=== PATIENT | female | born 1975 | race Caucasian/White ===

== ENCOUNTER 2016-11-20 08:44 | Inpatient (IN) | payer OTHER ==
[2016-11-09 13:00] VITALS: BMI 40.0
--- NOTE | 2016-11-09 13:30 | PAT Medication Instructions ---
Service Date Nov 09, 2016. Current Home Medication List Albuterol (Proair Hfa), 2 PUFFS INH Q4H PRN for SOB/Wheezing Albuterol Soln (Proventil 0.083% 2.5MG/3ML), 2.5 MG INH QID Bupropion Hcl (Wellbutrin), 150 MG PO QAM Diazepam (Diazepam), 5 MG PO DIRECTED Diclofenac Sodium (Topical) (Voltaren 1% Top Gel), 1 DOSE TOP Q6 PRN for Pain Gabapentin (Neurontin), 300 MG PO TID Hydrochlorothiazide (Hctz), 25 MG PO QAM Linaclotide (Linzess), 290 MCG PO QAM Lisinopril (Prinivil), 20 MG PO QAM Methylphenidate (Ritalin), 20 MG PO TID Morphine Sulfate (Ms Contin), 60 MG PO Q12 Multivitamin (Multivitamin), 1 TAB PO QAM Oxycodone Hcl (Oxycontin), 20 MG PO Q6 PRN for Pain Prazosin Hcl (Prazosin), 1 MG PO BID Prazosin Hcl (Prazosin), 2 MG PO HS Propranolol (Inderal), 60 MG PO HS Ranitidine (Zantac), 150 MG PO BID Sucralfate (Sucralfate), 1 GM PO QID Medication Instructions For Your Scheduled Surgery - Hold the following medications 24 hours prior to surgery: Diclofenac Sodium (Topical) (Voltaren 1% Top Gel), 1 DOSE TOP Q6 PRN for Pain - Hold the following medications the morning of surgery: Sucralfate (Sucralfate), 1 GM PO QID Multivitamin (Multivitamin), 1 TAB PO QAM Linaclotide (Linzess), 290 MCG PO QAM Methylphenidate (Ritalin), 20 MG PO TID - Take the following medications the morning of surgery with a sip of water OTHERWISE NOTHING TO EAT OR DRINK AFTER MIDNIGHT: Bupropion Hcl (Wellbutrin), 150 MG PO QAM Prazosin Hcl (Prazosin), 1 MG PO BID Ranitidine (Zantac), 150 MG PO BID Gabapentin (Neurontin), 300 MG PO TID Oxycodone Hcl (Oxycontin), 20 MG PO Q6 PRN for Pain (okay to take if needed up to 4 hours prior to surgery) Morphine Sulfate (Ms Contin), 60 MG PO Q12 (okay to take if needed up to 4 hours prior to surgery) Diazepam (Diazepam), 5 MG PO DIRECTED Lisinopril (Prinivil), 20 MG PO QAM Hydrochlorothiazide (Hctz), 25 MG PO QAM Albuterol (Proair Hfa), 2 PUFFS INH Q4H PRN for SOB/Wheezing (use if needed; BRING TO HOSPITAL) Albuterol Soln (Proventil 0.083% 2.5MG/3ML), 2.5 MG INH QID - Take the following medications as scheduled the night before surgery: Sucralfate (Sucralfate), 1 GM PO QID Prazosin Hcl (Prazosin), 1 MG PO BID Ranitidine (Zantac), 150 MG PO BID Gabapentin (Neurontin), 300 MG PO TID Prazosin Hcl (Prazosin), 2 MG PO HS Propranolol (Inderal), 60 MG PO HS Oxycodone Hcl (Oxycontin), 20 MG PO Q6 PRN for Pain Morphine Sulfate (Ms Contin), 60 MG PO Q12 Methylphenidate (Ritalin), 20 MG PO TID Albuterol (Proair Hfa), 2 PUFFS INH Q4H PRN for SOB/Wheezing Albuterol Soln (Proventil 0.083% 2.5MG/3ML), 2.5 MG INH QID If you have any questions please call us at [phone] or [phone] or [phone]
--- NOTE | 2016-11-09 14:03 | DIAGNOSTIC IMAGING REPORT ---
CHEST 2 VIEWS ROUTINE HISTORY: Pre-op. PAT COMPARISON: Chest 09/17/2014. FINDINGS: The lungs are clear. Cardiac silhouette is normal in size. No pleural effusions. No pneumothorax. Cervical spinal fusion hardware is again noted. IMPRESSION: No acute process. Electronically signed by: Alen Valentino M.D. 11/09/2016 2:02 PM
[2016-11-09 15:02] LABS: BASO % 0.2 %; BASO ABS # 0.02 K/uL (0-0.2); COMPLETE YES; EOS % 2.3 %; HEMATOCRIT 38.4 % (37-47); IG% 0.3 %; LYMPH % 28.3 %; LYMPH ABS # 3.27 K/uL (1.2-3.4); MEAN CELL VOLUME 93.2 fL (80-100); MEAN CORPUSCULAR HEMOGLOBIN 32.5 pg (25-34); MEAN CORPUSCULAR HGB CONC 34.9 g/dl (32-36); MEAN PLATELET VOLUME 10.1 fL (7.4-10.4); NEUT % 61.9 %; PLATELET COUNT 389 K/uL (130-400); RED BLOOD COUNT 4.12 M/uL (4.2-5.4); WHITE BLOOD COUNT 11.55 K/uL (4.8-10.8)
[2016-11-09 15:07] LABS: URINE APPEARANCE CLEAR (CLEAR); URINE BILIRUBIN NEG (NEG); URINE COLOR YELLOW; URINE EPITHELIAL CELL AUTO 20-30 /lpf (0-5); URINE NITRITE NEG (NEG); UROBILINOGEN NEG (NEG)
[2016-11-09 15:09] LABS: MANUAL MICROSCOPIC REQUIRED? NO; REVIEW REQ? NO
[2016-11-09 15:32] LABS: BUN/CREATININE RATIO 13.6 (10-20); CALCIUM 9.2 mg/dl (8.5-10.1); CREATININE 0.75 mg/dl (0.60-1.20); POTASSIUM 3.6 mmol/L (3.5-5.1)
[2016-11-20] VITALS (11 sets, daily range): BP systolic 85–131; BP diastolic 48–88; PULSE 48–85; TEMP 36.4–36.8; O2SAT 92–98; Ht 180.3 cm; Wt 131.6 kg
[~2016-11-20] VITALS: Ht 180.3 cm; Wt 131.6 kg
[~2016-11-20 08:44] MED LIST: ALBU0.08 INH; ALBU1AER9 INH; BUPR100T4 PO; CEFAZOLIN 3000 MG/65 ML D5W IV SCH; DICL1GEL12 TOP; GABA-113 PO; HYDR25TA4 PO; LACTATED RINGER'S 1000ML 1,000 ML IV SCH; LINA1CAP2 PO; LISI20TA3 PO; MORP60TA6 PO; MULT-506 PO; OXYC20TA50 PO; PRAZ1CAP10 PO; PRAZ2CAP3 PO; PROP1TAB PO; RTL20 PO; SUCR1TAB PO; VLM5CL PO; ZNTT/150 PO
[2016-11-20] MEDS ORDERED: FENTANYL CITRATE INJ 50 MCG/1 ML 2 ML VIAL ONE ×5 (09:12→12:40)
[2016-11-20] MEDS ORDERED: MIDAZOLAM HCL 1 MG/ML 2ML VIAL ONE (09:12)
--- NOTE | 2016-11-20 09:33 | History & Physical Bridge Note ---
H&P Re-Evaluation Bridge Note: I have examined the patient, reviewed the History & Physical and in the interval since the performance of the History & Physical I have noted the following changes of clinical significance: No changes noted
--- NOTE | 2016-11-20 09:34 | History and Physical: Surg Cnt ---
History & Physical Date Nov 20, 2016. Chief Complaint back and leg pain History of Present Illness The patient is a 41 year old female with complaints of Additional History Hepatic Disease: No Endocrine Disorder: No Kidney Disease: No Hypertension: No Heart Disease: No Bleeding Tendencies: No Infectious Diseases: No Allergies Coded Allergies: NO KNOWN DRUG ALLERGIES (Verified Allergy, Unknown, , 11/20/16) Milk (Verified Adverse Reaction, Unknown, SINUS CONGESTION, 11/20/16) PATIENT TOLERATES SKIM MILK, Home Medications Scheduled Albuterol Soln (Proventil 0.083% 2.5MG/3ML), 2.5 MG INH QID Diazepam (Diazepam), 5 MG PO DIRECTED Gabapentin (Neurontin), 300 MG PO TID Hydrochlorothiazide (Hctz), 25 MG PO QAM Linaclotide (Linzess), 290 MCG PO QAM Lisinopril (Prinivil), 20 MG PO QAM Methylphenidate (Ritalin), 20 MG PO TID Morphine Sulfate (Ms Contin), 60 MG PO Q12 Multivitamin (Multivitamin), 1 TAB PO QAM Prazosin Hcl (Prazosin), 1 MG PO BID Prazosin Hcl (Prazosin), 2 MG PO HS Propranolol (Inderal), 60 MG PO HS Ranitidine (Zantac), 150 MG PO BID Sucralfate (Sucralfate), 1 GM PO QID Scheduled PRN Albuterol (Proair Hfa), 2 PUFFS INH Q4H PRN for SOB/Wheezing Diclofenac Sodium (Topical) (Voltaren 1% Top Gel), 1 DOSE TOP Q6 PRN for Pain Oxycodone Hcl (Oxycontin), 20 MG PO Q6 PRN for Pain Physical Examination Skin: warm/dry, no rash Eyes: normal inspection, EOMI, sclerae normal ENT: normal ENT inspection, pharynx normal Head: normocephalic, atraumatic Neck: supple, no adenopathy, trachea midline Respiratory/Chest: lungs clear, normal breath sounds, no respiratory distress Cardiovascular: regular rate, rhythm, no edema, no murmur Abdomen / GI: normal bowel sounds, non tender Back: normal inspection Extremities: normal inspection, normal range of motion Neurologic/Psych: no motor/sensory deficits, alert, normal reflexes, oriented x 3 Diagnosis stenosis l4-5 Plan of Treatment removal inst L5-S1 fusion L4-5
[2016-11-20] MEDS ORDERED: LACTATED RINGER'S 1000ML 1,000 ML IV PRN (09:56)
[2016-11-20] MEDS ORDERED: HYDROmorphone INJ 1 MG/ML SYR IV PRN (10:00)
[2016-11-20] MEDS ORDERED: ONDANSETRON INJ 2 MG/ML 2 ML VIAL IV PRN (10:00)
[2016-11-20] MEDS ORDERED: HYDROmorphone INJ 2 MG/ML SYR/VIAL ONE ×3 (10:36→15:56)
[2016-11-20] MEDS ORDERED: BUPIVACAINE/EPINEPHRINE 0.5% MPF 1:200,000 30 ML VIAL INJ ONE (10:45)
[2016-11-20] MEDS ORDERED: LIDOCAINE HCL 2% 2 ML VIAL (20MG/ML) ONE (11:13)
[2016-11-20] MEDS ORDERED: ROCURONIUM BROMIDE 10 MG/ML 5 ML VIAL ONE (11:13)
[2016-11-20] MEDS ORDERED: DEXAMETHASONE SOD INJ 4 MG/ML VIAL ONE (11:13)
[2016-11-20] MEDS ORDERED: PROPOFOL IV EMULSION 10 MG/ML 20 ML VIAL IV ONE (11:13)
[2016-11-20] MEDS ORDERED: BACITRACIN 50000 UNIT VIAL IR ONE (12:20)
[2016-11-20] MEDS ORDERED: FLOSEAL HEMOSTATIC MATRIX 10ML TOP ONE (12:20)
[2016-11-20] MEDS ORDERED: NEOSTIGMINE METHYLSULFATE 1 MG/ML 10ML VIAL ONE (12:27)
[2016-11-20] MEDS ORDERED: ONDANSETRON INJ 2 MG/ML 2 ML VIAL ONE ×2 (12:27→12:57)
[2016-11-20] MEDS ORDERED: KETOROLAC TROMETHAMINE 30 MG/ML VIAL ONE (12:27)
[2016-11-20] MEDS ORDERED: GLYCOPYRROLATE INJ 0.2 MG/ML VIAL ONE (12:27)
[2016-11-20] MEDS ORDERED: SODIUM CHLORIDE 0.9% 1000ML 1,000 ML IV SCH (12:28)
--- NOTE | 2016-11-20 12:28 | [facility] Post Operative Brief Note ---
Immediate Operative Summary Operative Date Nov 20, 2016. Pre-Operative Diagnosis Spinal Stenosis L4-L5 Post-Operative Diagnosis Spinal Stenosis L4-L5 Procedure(s) Performed tlif Surgeon Dr. Jnog Boucher D.O. Loss Prevention And Safety Manager Surgeon(s) Jeff Crespo PA-C Estimated Blood Loss 100 Findings stenosis/facet cyst Specimens A) Explanted Spinal Hardware B) L4-L5, Possible facet cyst
[2016-11-20] MEDS ORDERED: hydrOXYzine HCL 25 MG TAB PO PRN (12:30)
[2016-11-20] MEDS ORDERED: SOD PHOSPHATE/SOD BIPHOSPHATE ENEMA 132 ML BTL PR PRN (12:30)
[2016-11-20] MEDS ORDERED: ALBUTEROL HFA 8 GM INHALER INH PRN (12:30)
[2016-11-20] MEDS ORDERED: MAGNESIUM HYDROXIDE SUSP 30 ML UDC PO PRN (12:30)
[2016-11-20] MEDS ORDERED: DO NOT ADMINISTER PNEUMOCOCCAL VACCINE PRN ×2 (12:30)
[2016-11-20] MEDS ORDERED: DO NOT ADMINISTER FLU VACCINE PRN ×3 (12:30)
[2016-11-20] MEDS ORDERED: PROMETHAZINE HCL INJ 12.5 MG in SODIUM CHLORIDE 0.9% 50ML 50 ML IV PRN (12:30)
[2016-11-20] MEDS ORDERED: BISACODYL 10 MG SUPP PR PRN (12:30)
[2016-11-20] MEDS ORDERED: ALUMINUM/MAGNESIUM SUSP 30 ML UDC PO PRN (12:30)
[2016-11-20] MEDS ORDERED: FAMOTIDINE 20 MG TAB PO PRN (12:30)
[2016-11-20] MEDS ORDERED: NALOXONE HCL 0.4 MG/1 ML VIAL/CARP IV PRN ×2 (12:30)
[2016-11-20] MEDS ORDERED: METOCLOPRAMIDE HCL INJ 5 MG/ML 2 ML VIAL IV PRN (12:30)
[2016-11-20] MEDS ORDERED: LORAZEPAM INJ 0.5 MG in SYRINGE 0.75 ML IV PRN (12:30)
[2016-11-20] MEDS ORDERED: ACETAMINOPHEN 500 MG TAB PO PRN (12:30)
[2016-11-20] MEDS ORDERED: OXYCODONE HCL IR 5 MG TAB (IMMEDIATE RELEASE) PO PRN (12:30)
--- NOTE | 2016-11-20 12:35 | DIAGNOSTIC IMAGING REPORT ---
INTRAOPERATIVE LUMBAR SPINE 2 VIEWS CLINICAL HISTORY: L4-S1 DECOMPRESSION/FUSION/INTERBODY COMPARISON STUDY: September 2014 FINDINGS: There are postsurgical changes of discectomies and interbody fusions at the L4-5 and L5-S1 levels. There is a grade 1 spondylolisthesis of L5 and S1. There are L4 and L5 pedicle screws with adjoining spinal rods. 8 seconds of fluoroscopic time was utilized. 2 fluoroscopic spot images were acquired IMPRESSION: Intraoperative findings as described above. Electronically signed by: Ghulam Mandel M.D. 11/20/2016 12:33 PM
[2016-11-20] MEDS ORDERED: HYDROmorphone HCL 0.5MG/ML 50 ML CASSETTE ONE (12:53)
[2016-11-20] MEDS: FENTANYL CITRATE INJ 50 MCG/1 ML 2 ML VIAL IV PRN ×2 (13:09→13:14)
[2016-11-20] MEDS: MoRPHine SULFATE 10 MG/ML CARP/VIAL IV PRN ×2 (13:20→13:25)
--- NOTE | 2016-11-20 13:31 | OPERATIVE REPORT ---
DATE OF OPERATION: 11/20/2016 PREOPERATIVE DIAGNOSIS: Spinal stenosis L4-L5. POSTOPERATIVE DIAGNOSES: Same with evidence of facet cyst on the right. PROCEDURES PERFORMED: 1. Removal of instrumentation L5-S1. 2. Exploration of fusion L5-S1. 3. Lumbar decompression, bilateral medial facetectomy, foraminotomy L4-L5. 4. Posterior spinal fusion L4-L5. 5. Placement posterior instrumentation using Orthros rods and screws L4-L5. 6. Interbody fusion L4-L5. 7. Placement of PEEK cage 14 x 26 mm at L4-L5. 8. Placement of locally harvested morcellized autograft in posterior gutters. 9. Placement of FiberNet and OsteoStrux in the interbody space and posterior gutters. SURGEON: Dr. Jong Boucher. INSURANCE SOLICITOR: Jeff Crespo PA-C. Due to the complex nature of the procedure, the entire surgery was performed with the acquisitions assistant of DESTINI Polo.? The procurement assistant, under direct supervision, was involved in the actual performance of all aspects of the surgical procedure including hemostasis, tissue retraction and incision, instrument management, patient positioning, and wound closure. ANESTHESIA: General. DISPOSITION: The patient awakened and taken to PACU in stable condition. HISTORY OF PATIENT'S PROBLEMS: This is a 41-year-old female well known to me that presents with the above-mentioned diagnosis. After failing an extensive course of nonoperative care, elected to undergo the above-mentioned procedure. Risks, benefits, pros, cons, and alternatives were outlined in detail preoperatively. DESCRIPTION OF PROCEDURE: The patient was met preoperatively and the case discussed and all questions were addressed. At that point the patient was taken back to operative suite and after undergoing successful general intubation by the department of by department of anesthesia, was placed in prone position on Kaushal table atop Mason frame. All bony prominences were well padded and the eyes were inspected to ensure there was no external pressure placed upon them. At this point, lumbar spine was prepped and draped in normal sterile fashion. Sharp dissection with the assistance of Bovie cautery was performed down to and exposing the lamina and transverse processes of L4, L5 and instrumentation at L5-S1 level. I then proceeded to remove the hardware bilaterally exploring the fusion mass noting it to be intact. I then performed a complete laminectomy of L4 including bilateral medial facetectomies and foraminotomies addressing severe lateral recess foraminal stenosis. On the right we identified a mass of facet cyst. This was sent to pathology. After decompression, pedicle screws were placed in L4-L5 bilaterally with assistance of fluoroscopy and appropriate size phoenix provisionally placed. Through a transforaminal approach on the right, a discectomy of L4-L5 was performed, endplates curetted to subcortical bleeding bone and a 14 x 26 mm PEEK cage filled with FiberNet and OsteoStrux tapped into position. The rods were then compressed, locked into final position bilaterally and transverse processes of L4-L5 burred to subcortical bone. The OsteoStrux locally harvested morcellized autograft and FiberNet placed in the posterior gutters. A 7 flat SHIVA drain inserted. Incision was closed with 1-0 Vicryl in the fascia, 2-0 Vicryl subcutaneously, 4-0 Monocryl for final skin closure. Steri-Strips and sterile dressing were placed. The patient was awakened and taken to PACU in stable condition. I attest to the content of the Intraoperative Record and any orders documented therein. Any exceptio ns are noted below.
--- NOTE | 2016-11-20 13:59 | Anesthesiology Progress Note ---
Anesthesia Post Op Note Date & Time Nov 20, 2016 at 13:58 Vital Signs Pain Intensity: 8 Vital Signs Past 12 Hours Date Time Temp Pulse Resp B/P Pulse Ox O2 Delivery O2 Flow Rate FiO2 11/20/16 13:50 65 16 91/50 99 Nasal Cannula 2 11/20/16 13:40 66 16 90/47 99 Nasal Cannula 2 11/20/16 13:30 71 16 87/50 99 Mask 10 11/20/16 13:20 70 16 109/54 98 Mask 10 11/20/16 13:10 72 16 137/60 97 Mask 10 11/20/16 13:00 68 16 131/77 97 Mask 10 11/20/16 12:56 36.4 77 14 145/78 96 Mask 10 11/20/16 08:59 36.8 68 20 116/57 98 Room Air Notes Mental Status: alert / awake / arousable, participated in evaluation Pt Amnestic to Procedure: Yes Nausea / Vomiting: adequately controlled Pain: adequately controlled Airway Patency, RR, SpO2: stable & adequate BP & HR: stable & adequate Hydration State: stable & adequate Anesthetic Complications: no major complications apparent
[2016-11-20] MEDS: HYDROmorphone HCL 0.5MG/ML 50 ML CASSETTE IV PRN ×3 (14:41→23:04)
[2016-11-20] MEDS ORDERED: OXYC1TAB3 PO (15:12)
[2016-11-20] MEDS: LACTATED RINGER'S 1000ML 1,000 ML IV SCH ×2 (15:30→21:46)
[2016-11-20] MEDS ORDERED: DIAZEPAM 5MG TAB ONE (15:55)
[2016-11-20] MEDS ORDERED: OXYCODONE HCL IR 5 MG TAB (IMMEDIATE RELEASE) ONE (15:58)
[2016-11-20] MEDS: ALBUTEROL 0.083% NEBU SOLN 3 ML VIAL INH SCH ×2 (16:00→19:59)
[2016-11-20] MEDS ORDERED: NURSING VERBAL MED ORDER ONE ×2 (16:00→18:15)
[2016-11-20] MEDS: ACETAMINOPHEN IV 100 ML IV PRN (16:15)
[2016-11-20] MEDS: SUCRALFATE 1 GM TAB PO SCH ×2 (17:09→21:45)
[2016-11-20] MEDS: CEFAZOLIN IV 2,000 MG in DEXTROSE 5% 50ML 50 ML IV SCH (17:38)
[2016-11-20] MEDS: PAROXETINE 20 MG TAB PO SCH (18:39)
[2016-11-20] MEDS: DEXAMETHASONE INJ 6 MG in SYRINGE 0 ML IV SCH (19:24)
[2016-11-20] MEDS: OXYCODONE HCL IR 5 MG TAB (IMMEDIATE RELEASE) PO PRN (19:26)
[2016-11-20] MEDS: DOCUSATE SODIUM/SENNA 50/8.6MG TAB PO SCH (21:41)
[2016-11-20] MEDS: DIAZEPAM 5MG TAB PO SCH (21:42)
[2016-11-20] MEDS: GABAPENTIN 300 MG CAP PO SCH (21:43)
[2016-11-20] MEDS: PRAZOSIN HCL 1 MG CAP PO SCH ×2 (21:43)
[2016-11-20] MEDS: MoRPHine SULFATE CR 60 MG TAB (MS CONTIN) PO SCH (21:44)
[2016-11-20] MEDS: PROPRANOLOL HCL 20 MG TAB PO SCH (21:44)
[2016-11-20] MEDS: RANITIDINE HCL 150 MG TAB PO SCH (21:44)
[2016-11-20] MEDS ORDERED: COUGH DROP (SUGAR FREE) LOZ 24 LOZ/1 BOX ONE (23:34)
[2016-11-21] MEDS: ACETAMINOPHEN IV 100 ML IV PRN (00:18)
[2016-11-21] MEDS: ONDANSETRON INJ 2 MG/ML 2 ML VIAL IV PRN ×2 (00:22→08:45)
[2016-11-21] MEDS: CEFAZOLIN IV 2,000 MG in DEXTROSE 5% 50ML 50 ML IV SCH (02:09)
[2016-11-21 03:29] VITALS: BP 90/56; PULSE 69; TEMP 36.8; O2SAT 93
[2016-11-21] MEDS: OXYCODONE HCL IR 5 MG TAB (IMMEDIATE RELEASE) PO PRN ×4 (03:46→23:11)
[2016-11-21] MEDS: DEXAMETHASONE INJ 6 MG in SYRINGE 0 ML IV SCH ×2 (03:47→11:55)
[2016-11-21] MEDS ORDERED: NURSING DECISION MEDICATION ORDER SCH (06:00)
[2016-11-21] MEDS ORDERED: OXYCODONE HCL IR 5 MG TAB (IMMEDIATE RELEASE) PO PRN ×2 (06:00)
[2016-11-21] MEDS ORDERED: DC PCA ONE (06:00)
[2016-11-21 06:01] LABS: COMPLETE YES; HEMATOCRIT 30.4 % (37-47); IG% 0.3 %; LYMPH % 9.5 %; LYMPH ABS # 1.12 K/uL (1.2-3.4); MEAN CELL VOLUME 95.3 fL (80-100); MEAN CORPUSCULAR HGB CONC 33.6 g/dl (32-36); MEAN PLATELET VOLUME 10.3 fL (7.4-10.4); MONO % 2.3 %; NEUT % 87.9 %; PLATELET COUNT 240 K/uL (130-400); RED BLOOD COUNT 3.19 M/uL (4.2-5.4); WHITE BLOOD COUNT 11.85 K/uL (4.8-10.8)
[2016-11-21 06:28] LABS: BUN/CREATININE RATIO 14.4 (10-20); CREATININE 0.93 mg/dl (0.60-1.20); POTASSIUM 4.9 mmol/L (3.5-5.1)
[2016-11-21] MEDS: METHYLPHENIDATE HCL 10 MG TAB PO SCH ×3 (06:31→16:00)
[2016-11-21 07:00] VITALS: BP 116/65; PULSE 66; TEMP 36.6; O2SAT 95
[2016-11-21 07:38] VITALS: PULSE 68; O2SAT 96
[2016-11-21] MEDS: ALBUTEROL 0.083% NEBU SOLN 3 ML VIAL INH SCH ×4 (07:38→19:49)
[2016-11-21] MEDS: MoRPHine SULFATE CR 60 MG TAB (MS CONTIN) PO SCH ×2 (08:39→21:13)
[2016-11-21] MEDS: MULTIVITAMIN TAB PO SCH (08:40)
[2016-11-21] MEDS: HYDROCHLOROTHIAZIDE 25 MG TAB PO SCH (08:40)
[2016-11-21] MEDS: PRAZOSIN HCL 1 MG CAP PO SCH ×3 (08:40→21:36)
[2016-11-21] MEDS: RANITIDINE HCL 150 MG TAB PO SCH ×2 (08:42→21:14)
[2016-11-21] MEDS: GABAPENTIN 300 MG CAP PO SCH ×3 (08:42→21:14)
[2016-11-21] MEDS: SUCRALFATE 1 GM TAB PO SCH ×4 (08:42→21:14)
[2016-11-21] MEDS: PAROXETINE 20 MG TAB PO SCH (08:43)
[2016-11-21] MEDS: LISINOPRIL 20 MG TAB PO SCH (08:43)
[2016-11-21] MEDS: DIAZEPAM 5MG TAB PO SCH ×2 (08:46→21:13)
[2016-11-21] MEDS: HYDROmorphone INJ 1 MG/ML SYR IV PRN ×3 (09:24→17:51)
[2016-11-21] MEDS ORDERED: KETOROLAC TROMETHAMINE 30 MG/ML VIAL IV PRN (09:30)
--- NOTE | 2016-11-21 10:00 | PROGRESS NOTE ---
DATE: 11/21/2016 DATE: 11/21/2016. SUBJECTIVE: Postop day 1 complaining mostly of back pain, continued right leg numbness, no pain. Vital signs stable. T-max 36.8. SHIVA drained 155 mL. Hematocrit this a.m. is 30.4. OBJECTIVE: On exam the patient is in chair, has good strength to testing. ASSESSMENT: Status post lumbar decompression and fusion. PLAN: At this time, she had a little struggle with postoperative pain. She was on considerable narcotic medications preoperatively. I explained this to the patient. We will continue her on MS Contin 60 b.i.d. as well as 10 mg oxycodone q. 10 for breakthrough as well as IV Dilaudid. We have also added Toradol. She is also on her continued Valium b.i.d. as well as intermittent lorazepam. Hopefully, a combination of these medications will at least control her pain to some degree. I have emphasized to the patient she will always have a component of pain in light of the amount of medications she was on preoperatively.
[2016-11-21] MEDS: LORAZEPAM 0.5 MG TAB PO PRN (11:54)
[2016-11-21 15:24] VITALS: BP 127/74; PULSE 71; TEMP 36.8; O2SAT 96
[2016-11-21 19:49] VITALS: PULSE 68; O2SAT 93
[2016-11-21] MEDS: PROPRANOLOL HCL 20 MG TAB PO SCH (21:35)
[2016-11-21] MEDS: DOCUSATE SODIUM/SENNA 50/8.6MG TAB PO SCH (21:36)
[2016-11-21 23:10] VITALS: BP 94/57; PULSE 60; TEMP 36.5; O2SAT 97
[2016-11-22] MEDS: POLYETHYLENE (MIRALAX) 17 GM PACK PO SCH ×2 (06:00→10:47)
[2016-11-22] MEDS: METHYLPHENIDATE HCL 10 MG TAB PO SCH ×2 (06:40→10:46)
[2016-11-22] MEDS: OXYCODONE HCL IR 5 MG TAB (IMMEDIATE RELEASE) PO PRN (06:41)
[2016-11-22 07:27] VITALS: BP 120/70; PULSE 68; TEMP 36.4; O2SAT 96
[2016-11-22 07:43] VITALS: PULSE 76; O2SAT 96
[2016-11-22] MEDS: ALBUTEROL 0.083% NEBU SOLN 3 ML VIAL INH SCH ×2 (07:43→11:35)
[2016-11-22] MEDS: PRAZOSIN HCL 1 MG CAP PO SCH (07:47)
[2016-11-22] MEDS: MULTIVITAMIN TAB PO SCH (07:47)
[2016-11-22] MEDS: PAROXETINE 20 MG TAB PO SCH (07:48)
[2016-11-22] MEDS: GABAPENTIN 300 MG CAP PO SCH ×2 (07:48→13:47)
[2016-11-22] MEDS: HYDROCHLOROTHIAZIDE 25 MG TAB PO SCH (07:48)
[2016-11-22] MEDS: LISINOPRIL 20 MG TAB PO SCH (07:48)
[2016-11-22] MEDS: MoRPHine SULFATE CR 60 MG TAB (MS CONTIN) PO SCH (07:59)
[2016-11-22] MEDS: DIAZEPAM 5MG TAB PO SCH (07:59)
[2016-11-22] MEDS: LORAZEPAM 0.5 MG TAB PO PRN (08:00)
[2016-11-22] MEDS: RANITIDINE HCL 150 MG TAB PO SCH (08:50)
[2016-11-22] MEDS: SUCRALFATE 1 GM TAB PO SCH ×2 (08:51→13:47)
[2016-11-22] MEDS: HYDROmorphone INJ 1 MG/ML SYR IV PRN (11:49)
[2016-11-22] MEDS ORDERED: MORP60TA6 PO (12:28)
--- NOTE | 2016-11-22 12:28 | Discharge Instructions ---
Discharge Instructions Admission Reason for Admission: Lumbar Spinal Stenosis Discharge Discharge Diagnosis / Problem: stenosis Discharge Goals Goal(s): Improve function Activity Recommendations Activity Limitations: per Instructions/Follow-up section . Instructions / Follow-Up Instructions / Follow-Up ACTIVITY RECOMMENDATIONS: SELF CARE INSTRUCTIONS AFTER THORACIC/LUMBAR FUSIONS 1. You may walk to your tolerance. It is good exercise for your legs and back. Expect some back and intermittent leg aches and pains. 2. You may perform "counter-top" level activities (make a sandwich, rita with a project, etc.). 3. No bending or lifting of more than 10 pounds or back twisting of any nature (roll like a log when turning in bed). 4. You may ride in a car for 20-30 minutes at a time. No driving until after your first visit with your doctor. 5. Frequent changes of position and restricting sitting to 30 minutes at a time will help limit the amount of back spasms and stiffness you may experience. 6. You may discontinue the use of ambulatory aids (cane, crutches, etc.) once your strength and confidence allow. 7. You may incising machine operator the shower and let water strike your incision when you arrive home at least once daily. Do not take a tub bath, sit in a hot tub or go into a swimming pool until after your first recheck in the office. SPECIAL CARE INSTRUCTIONS: VERY IMPORTANT TO READ AND REVIEW A. Your surgical incision has been closed with a cosmetic suture under the skin that will dissolve in about 6 weeks. In 14 days, you can use a pair of clean scissors and cut the suture that is left outside of the skin at the ends of your incision. 1. The small skin tapes can be removed 7 days after surgery if they have not fallen off by that point. 2. You may keep the wound open to air as much as possible to promote healing after post-op day number 5 unless told otherwise by your doctor. 3. If you think the wound looks like it is becoming infected (redness or worsening drainage) and/or you are experiencing fever, chill or worsening back pain and muscle spasms, contact the office so that we may evaluate you as soon as possible. B. Complications are uncommon, but please contact us if you have any signs or symptoms of: 1. wound infection (fever higher than 102.5 degrees F, redness, separation of wound, drainage, or increasing pain from the incision) 2. blood clots in legs (pain, swelling, redness and warmth in legs) 3. urinary tract infection (fever higher than 102.5 degrees F, burning upon urination or increased frequency of urination) 4. nerve problems (inability to walk on your toes or heels, numbness, loss of bowel or bladder control) 5. any other symptoms that concern you C. Please call the office at if you have any concerns or questions about your operation or recovery. D. No smoking! Smoking drastically decreases the chance of a solid fusion. E. Do not take any anti-inflammatory medications (Indocin, Advil, Motrin, Aspirin, Naprosyn, etc.) as these may inhibit the chance of a solid fusion. Tylenol is okay to take for pain. MANAGING PAIN AFTER SPINAL SURGERY 1. Narcotic medication is intended for short-term use and will be provided for surgical pain. Surgical pain usually lasts for a period of 4-6 weeks. Narcotic medication includes Percocet, Vicodin, Darvocet, Tylenol #3 or Lortab. 2. Longer-term pain is more appropriately treated with non-narcotic medication such as Tylenol ES. 3. Muscle spasm is not appropriately treated with narcotics. Muscle relaxers such as Soma, Flexeril or Skelaxin can be used along with Tylenol ES. 4. Remember that we all live with some "aches and pains". This is not unusual or uncommon after an injury or as we get older. a. Back pain is expected and may include muscle spasms for 4 to 6 weeks after surgery. The pain should gradually improve. If the pain worsens for no apparent reason, please contact the office. b. Intermittent leg pain may also be experienced and should not be concerned about unless it worsens for no apparent reason. If so, please contact the office. 5. We will provide appropriate medication within the normal guidelines of their prescribed use. We will also be very cautious and aware of potential abuse and extended duration of patients' medication needs. a. Pain medications are for your comfort and to assist with sleep and rest so that the tissue can heal. They are not provided in order to return to normal activity and should not be used through the day. To do so or worsening pain at night can result from ongoing tissue damage and development of tolerance to the prescribed medicine. 6. Please allow 2-3 days to process refills. Prescriptions will not be mailed but must be picked up at the office. FOLLOW UP VISIT: Keep your scheduled follow-up appointment. Any questions, please call the office at . Current Hospital Diet Patient's current hospital diet: Regular Diet Discharge Diet Recommended Diet: Regular Diet Procedures Procedures Performed: L4-L5 Lumbar Decompression, Fusion with instrumentation, Interbody fusion L4-L5 with placement of Interbody Spacer; Application of fibrinet, hardware removal L5-S1 Pending Studies Studies pending at discharge: no Medical Emergencies . Who to Call and When: Medical Emergencies: If at any time you feel your situation is an emergency, please call 911 immediately. . Non-Emergent Contact Non-Emergency issues call your: Primary Care Provider . "Provider Documentation" section prepared by Jong Boucher. VTE Core Measure Inpt VTE Proph given/why not?: Kevin Tillman, SCD's
[2016-11-22 12:45] VITALS: BP 120/70; PULSE 76; TEMP 36.4; O2SAT 96
--- NOTE | 2016-11-22 17:59 | DISCHARGE SUMMARY ---
PRINCIPAL DIAGNOSIS: Spinal stenosis. HOSPITAL COURSE FOLLOWS: On November 20 the patient underwent lumbar decompression and fusion, tolerated this well and taken to the orthopedic floor postoperatively. Postop day #1, she was up and ambulatory, progressed to postop day #2, pain was well controlled, ambulating without difficulty with the use of a walker. Subsequently discharged home. Discharge orders and instructions found on the chart for further review.
== END 2016-11-22 13:53 | disposition home health service (06) | DRG 460 ==
LOC: ENRESERVDT → ENRESERVTM → C.ACU 08:44 → C.3E 12:33
PROVIDERS: ADMIT Orthopaedic Surgery Orthopaedic Surgery of the Spine; ATTEND Orthopaedic Surgery Orthopaedic Surgery of the Spine
PROC: 0SG00A1 (ICD-10-PCS; principal; 2016-11-20 11:30)
PROC: 0SP004Z Removal of Internal Fixation Device from Lumbar Vertebral Joint, Open Approach (ICD-10-PCS; 2016-11-20 11:30)
DX: M48.06 Spinal stenosis, lumbar region (principal); G89.18 Other acute postprocedural pain; Z79.899 Other long term (current) drug therapy

== ENCOUNTER 2018-03-03 08:36 | Emergency (ER) | payer OTHER ==
[~2018-03-03] VITALS: Ht 181.6 cm; Wt 110.7 kg
[~2018-03-03 08:36] MED LIST changes: -BUPR100T4 PO; -CEFAZOLIN 3000 MG/65 ML D5W IV SCH; -LACTATED RINGER'S 1000ML 1,000 ML IV SCH; +OXYC1TAB3 PO; -OXYC20TA50 PO; +RANI150T85 PO; -ZNTT/150 PO
[2018-03-03 08:40] VITALS: TEMP 36.7; Ht 181.6 cm; Wt 110.7 kg
[2018-03-03] MEDS ORDERED: ONDANSETRON INJ 2 MG/ML 2 ML VIAL IV STA (09:31)
[2018-03-03] MEDS ORDERED: KETOROLAC TROMETHAMINE 30 MG/ML VIAL IV STA (09:31)
[2018-03-03] MEDS ORDERED: MoRPHine SULFATE 10 MG/ML CARP/VIAL IV STA (09:31)
--- NOTE | 2018-03-03 09:33 | EMERGENCY ROOM VISIT NOTE ---
History Report prepared by Williams: Francois Wilkinson Under the Supervision of: Dr. Fletcher Hoff D.O. First contact with patient: 09:19 Chief Complaint: BACK PAIN Stated Complaint: BACK AND ABDOMINAL PAIN History of Present Illness The patient is a 42 year old female who presents to the Emergency Room with complaints of "severe" lower back pain. This is been off and on for the past several years. She has had [address] Boucher. Pain is a 10 out of 10 currently. It comes and goes with exertion, twisting turning or bending. Pain radiates from the lower thoracic/lower lumbar out on the right side of her abdomen and down the back of her right leg. She does describe paresthesias in the abdomen and leg. No focal weakness. She is able to ambulate. Unable to recall last bowel movement. No IV drug use. No fevers. No history cancer. No urinary complaints. Patient notes that she was referred in by her spinal surgeon. Pain and paresthesias does resolve when she is not being physically active. 3 weeks ago when this started she was chopping wood and moving with into her fireplace. Pt denies headache, change in vision, fevers, chest pain, shortness of breath, nausea, vomiting, diarrhea, pain with urination, and melena. Source of History: patient Onset: Several years Position: back (lower) Symptom Intensity: severe Timing: intermittent ("on and off" ) Modifying Factors (Worsening): exertion, other (twisting, bending) Associated Symptoms: No fevers, No headache, No chest pain, No weakness Note: She does describe paresthesias in the abdomen and leg Review of Systems See HPI for pertinent positives & negatives. A total of 10 systems reviewed and were otherwise negative. Past Medical & Surgical Medical Problems: (1) Lumbar stenosis with neurogenic claudication Social History Smoking Status: Current Every Day Smoker Current/Historical Medications Scheduled Dexlansoprazole (Dexilant), 60 MG PO DAILY Divalproex Sodium (Divalproex Sodium Dr), 250 MG PO HS Gabapentin (Neurontin), 600 MG PO BID Hydrochlorothiazide (Hydrochlorothiazide), 25 MG PO DAILY Linaclotide (Linzess), 290 MCG PO DAILY Lisinopril (Lisinopril), 20 MG PO DAILY Methylphenidate (Ritalin), 10 MG PO HS Methylphenidate (Ritalin), 20 MG PO TID Paroxetine Hcl (Paxil), 30 MG PO BID Prazosin Hcl (Prazosin), 1 MG PO BID Prazosin Hcl (Prazosin), 2 MG PO HS Prednisone (Prednisone), 50 MG PO DAILY Propranolol La (Inderal La), 120 MG PO HS Ranitidine (Zantac), 150 MG PO BID Rivaroxaban (Xarelto), 20 MG PO DAILY Sumatriptan Succinate (Imitrex), 50 MG PO PRN Topiramate (Topamax), 100 MG PO TID Scheduled PRN Morphine Sulfate (Morphine Sulfate ER), 15 MG PO BID PRN for Pain Oxycodone HCl (Oxycontin), 10 MG PO QID PRN for Pain Allergies Coded Allergies: NO KNOWN DRUG ALLERGIES (Verified Allergy, Unknown, , 11/20/16) Milk (Verified Adverse Reaction, Unknown, SINUS CONGESTION, 11/20/16) PATIENT TOLERATES SKIM MILK, Physical Exam Vital Signs Date Time Temp Pulse Resp B/P (MAP) Pulse Ox O2 Delivery O2 Flow Rate FiO2 03/03/18 11:36 70 20 104/63 97 Room Air 03/03/18 10:19 72 16 141/72 100 Room Air 03/03/18 08:40 36.7 82 17 129/81 100 Room Air Physical Exam GENERAL: Sitting on edge of bed, holding right flank and right lower back, alert , well appearing, well nourished, non-toxic EYE EXAM: normal conjunctiva. OROPHARYNX: no exudate, no erythema, lips, buccal mucosa, and tongue normal and mucous membranes are moist NECK: supple, no nuchal rigidity, no adenopathy, non-tender LUNGS: Clear to auscultation. Normal chest wall mechanics HEART: no murmurs, S1 normal and S2 normal ABDOMEN: abdomen soft, non-tender, normo-active bowel sounds, no masses, no rebound or guarding. BACK: Back is symmetrical on inspection and there is no deformity, no midline tenderness, no CVA tenderness. There is acute reproducible lower lumbar paraspinal tenderness, tracking through the bilateral gluteus but worse on the right. SKIN: no rashes and no bruising UPPER EXTREMITIES: upper extremities are grossly normal. LOWER EXTREMITIES: No pitting edema. Flexion/extension of the hip, knee, ankle, and EHL are 5/5. DP are 2/4, able to walk on heels and toes. Patellar and Achilles reflexes are 2/4 bilaterally. NEURO EXAM: Normal sensorium, cranial nerves II-XII intact, normal speech, no weakness of arms, no weakness of legs. No drift. Finger to nose intact. Gross sensation intact. Medical Decision & Procedures ER Provider Diagnostic Interpretation: Radiology results as stated below per my review and the radiologist's interpretation: LUMBAR SPINE 2 OR 3 VIEWS HISTORY: 42 years-old Female lower back pain acute low back pain with history of multiple back surgeries COMPARISON: Thoracic spine radiographs of same day, lumbar spine MR 06/23/2016 TECHNIQUE: 3 views of the lumbar spine FINDINGS: 5 lumbar type nonrib-bearing vertebral segments are present. No acute fracture or subluxation is identified. Postoperative changes from posterior decompression with interbody phoenix and screw fusion and discectomy at L4-L5. Discectomy changes are also noted at L5-S1. Moderate intervertebral disc space narrowing at a L1-L2. Mild multilevel spondylitic spurring. IMPRESSION: No acute fracture or subluxation. The above report was generated using voice recognition software. It may contain grammatical, syntax or spelling errors. Electronically signed by: Jamaal You M.D. 03/03/2018 10:21 AM Dictated Date/Time: 03/03/2018 10:18 AM THORACIC SPINE 3 VIEWS CLINICAL HISTORY: Thoracic back pain. FINDINGS: AP, lateral, and swimmer's views of the thoracic spine are correlated with lateral chest x-ray dated 09/17/2014. The skeletal structures are well mineralized. There is no radiographic evidence of fracture or malalignment involving the thoracic spine. Vertebral body height and alignment are maintained. Fusion hardware is noted in the lower cervical region. The transverse processes and pedicles are grossly intact as seen on the frontal view. Mild multilevel degenerative disc space narrowing is noted. Foci of degenerative endplate sclerosis are seen in the mid to lower thoracic region. The lung parenchyma is clear as visualized. IMPRESSION: No acute bony abnormality is identified involving the thoracic spine. Electronically signed by: Naun Luis M.D. 03/03/2018 10:17 AM Dictated Date/Time: 03/03/2018 10:16 AM Laboratory Results 03/03/18 09:40 Red Blood Count 4.16, Mean Corpuscular Volume 91.3, Mean Corpuscular Hemoglobin 32.5, Mean Corpuscular Hemoglobin Concent 35.5, Mean Platelet Volume 9.8, Neutrophils (%) (Auto) 49.0, Lymphocytes (%) (Auto) 41.1, Monocytes (%) (Auto) 6.7, Eosinophils (%) (Auto) 2.4, Basophils (%) (Auto) 0.4, Neutrophils # (Auto) 4.48, Lymphocytes # (Auto) 3.76, Monocytes # (Auto) 0.61, Eosinophils # (Auto) 0.22, Basophils # (Auto) 0.04 03/03/18 09:40 Test 03/03/18 08:40 03/03/18 09:40 03/03/18 10:32 Urine Color YELLOW Urine Appearance CLEAR (CLEAR) Urine pH 5.5 (4.5-7.5) Urine Specific [place] 1.010 (1.000-1.030) Urine Protein NEG (NEG) Urine Glucose (UA) NEG (NEG) Urine Ketones NEG (NEG) Urine Occult Blood NEG (NEG) Urine Nitrite NEG (NEG) Urine Bilirubin NEG (NEG) Urine Urobilinogen NEG (NEG) Urine Leukocyte Esterase NEG (NEG) Urine WBC (Auto) 0 /hpf (0-5) Urine RBC (Auto) 0-4 /hpf (0-4) Urine Hyaline Casts (Auto) 0 /lpf (0-5) Urine Epithelial Cells (Auto) >30 /lpf (0-5) Urine Bacteria (Auto) NEG (NEG) Urine Test NEG (NEG) White Blood Count 9.15 K/uL (4.8-10.8) Red Blood Count 4.16 M/uL (4.2-5.4) Hemoglobin 13.5 g/dL (12.0-16.0) Hematocrit 38.0 % (37-47) Mean Corpuscular Volume 91.3 fL (80-100) Mean Corpuscular Hemoglobin 32.5 pg (25-34) Mean Corpuscular Hemoglobin Concent 35.5 g/dl (32-36) Platelet Count 321 K/uL (130-400) Mean Platelet Volume 9.8 fL (7.4-10.4) Neutrophils (%) (Auto) 49.0 % Lymphocytes (%) (Auto) 41.1 % Monocytes (%) (Auto) 6.7 % Eosinophils (%) (Auto) 2.4 % Basophils (%) (Auto) 0.4 % Neutrophils # (Auto) 4.48 K/uL (1.4-6.5) Lymphocytes # (Auto) 3.76 K/uL (1.2-3.4) Monocytes # (Auto) 0.61 K/uL (0.11-0.59) Eosinophils # (Auto) 0.22 K/uL (0-0.5) Basophils # (Auto) 0.04 K/uL (0-0.2) RDW Standard Deviation 45.2 fL (36.4-46.3) RDW Coefficient of Variation 13.8 % (11.5-14.5) Immature Granulocyte % (Auto) 0.4 % Immature Granulocyte # (Auto) 0.04 K/uL (0.00-0.02) Anion Gap 5.0 mmol/L (3-11) Est Creatinine Clear Calc Drug Dose 122.1 ml/min Estimated GFR () 101.6 Estimated GFR (Non- 87.6 BUN/Creatinine Ratio 12.7 (10-20) Calcium Level 8.9 mg/dl (8.5-10.1) Total Bilirubin 0.3 mg/dl (0.2-1) Direct Bilirubin < 0.1 mg/dl (0-0.2) Aspartate Amino Transf (AST/SGOT) 10 U/L (15-37) Alanine Aminotransferase (ALT/SGPT) 16 U/L (12-78) Alkaline Phosphatase 94 U/L (45-117) Total Protein 8.0 gm/dl (6.4-8.2) Albumin 3.4 gm/dl (3.4-5.0) Lipase 144 U/L (73-393) Prothrombin Time 12.0 SECONDS (9.0-12.0) Prothromb Time International Ratio 1.1 (0.9-1.1) Activated Partial Thromboplast Time 31.3 SECONDS (21.0-31.0) Partial Thromboplastin Ratio 1.2 Laboratory results per my review. Medications Administered Medications (Trade) Dose Ordered Sig/Jie Route Start Time Stop Time Status Last Admin Dose Admin Morphine Sulfate (MoRPHine SULFATE INJ) 6 mg NOW STAT IV 03/03/18 09:31 03/03/18 09:32 DC 03/03/18 09:40 6 MG Ondansetron HCl (Zofran Inj) 4 mg NOW STAT IV 03/03/18 09:31 03/03/18 09:33 DC 03/03/18 09:39 4 MG Ketorolac Tromethamine (Toradol Inj) 30 mg NOW STAT IV 03/03/18 09:31 03/03/18 09:33 DC 03/03/18 09:39 30 MG Methylprednisolone Sodium Succinate (Solu-Medrol IV) 125 mg NOW STAT IV 03/03/18 11:33 03/03/18 11:34 DC 03/03/18 11:39 125 MG ED Course ED COURSE: Vital signs were reviewed and showed tachycardic vitals. The patients medical record was reviewed The above diagnostic studies were performed and reviewed. ED treatments and interventions as stated above. 0920: The patient was evaluated in room B11B. A complete history and physical examination was performed. 0931: Ordered Toradol 30 mg IV, Zofran 4 mg IV, Morphine Sulfate 6 mg IV. 1133: Ordered Solu-Medrol 125 mg IV. 1136: Upon reevaluation, the patient is resting, she does not want to stay because her wants to go to work..I discussed my findings with the patient and she understands and agrees with the treatment plan. Based on the patients age, coexisting illnesses, exam and lab findings the decision to treat as an outpatient was made. The patient remained stable while under my care. The patient appeared well at the time of discharge. Medical Decision Differential diagnoses includes but is not limited to lumbar radiculopathy, kidney stone, muscle strain, facture, cauda equina, mass, and disc herniation. Patient is a 42-year-old female who presents to ER with past medical history of multiple lower back surgeries for lower back pain radiating down her right leg and into her right flank. She is completely neurologically intact. Patellar reflexes are intact. Able walk on heels and toes. No focal deficit. X-rays were unremarkable. No other red flags. She denies any chest pain or shortness of breath. I do believe her pain is purely musculoskeletal/lumbar/thoracic radiculopathy. Patient was given IV morphine. She did feel significantly better. Paged orthopedics/her spine surgeon but she was unable to wait for me discuss the case with her surgeon and she left prior to me discussing the case. I informed her of the risk and benefits of this. She notes that she cannot stay because her ride has to go to work. We continued to page Dr. Boucher and his PA but was unsuccessful over the course of 6 hours. Patient left the following for refusal of care. Discussed with Pt concerning signs and symptoms to watch out for. Pt was instructed to follow up with their PCP and discussed with the patient their option to return to the ED at anytime for persistent or worsening symptoms. The appropriate anticipatory guidance and out-patient management, including indications for return to the emergency department, were explained at length to the patient and understood. Medication Reconcilliation Current Medication List: was personally reviewed by me Blood Pressure Screening Patient's blood pressure: Normal blood pressure Impression Primary Impression: Strain of lumbar region Additional Impression: Radiculopathy of lumbosacral region Scribe Attestation The scribe's documentation has been prepared under my direction and personally reviewed by me in its entirety. I confirm that the note above accurately reflects all work, treatment, procedures, and medical decision making performed by me. Departure Information Dispostion Home / Self-Care Prescriptions Prednisone (PREDNISONE) 50 Mg Tab 50 MG PO DAILY for 5 Days, #5 TAB Prov: Fletcher Hoff, DO 03/03/18 Referrals No Doctor, Assigned (PCP) Forms HOME CARE DOCUMENTATION FORM, IMPORTANT VISIT INFORMATION Patient Instructions My [facility] Additional Instructions Please follow up with your primary care doctor with in the next 24 hours. Any worsening of your symptoms, please return to the ED immediately. This includes any fevers greater than 100.4, worsening pain, chest pain, shortness breath, persistent nausea, vomiting, unable to eat or drink, new weakness or numbness in her leg, unable to move her bowels, unable to urinate, numbness in her groin , or any other concerning signs or symptoms from your standpoint. Please refrain from any excessive exertion or physical lifting. You were given medications during this visit that will inhibit your ability to drive, operate machinery and work. Please do NOT drive, operate machinery, drink alcohol or work for the next 12hrs. Please take steroids as prescribed. Problem Qualifiers Primary Impression: Strain of lumbar region Encounter type: initial encounter Qualified Codes: S39.012A - Strain of muscle, fascia and tendon of lower back, initial encounter
[2018-03-03 09:47] LABS: BASO % 0.4 %; BASO ABS # 0.04 K/uL (0-0.2); EOS % 2.4 %; EOS ABS # 0.22 K/uL (0-0.5); HEMOGLOBIN 13.5 g/dL (12.0-16.0); IG# 0.04 K/uL (0.00-0.02); LYMPH % 41.1 %; LYMPH ABS # 3.76 K/uL (1.2-3.4); MEAN CELL VOLUME 91.3 fL (80-100); MEAN CORPUSCULAR HEMOGLOBIN 32.5 pg (25-34); MEAN CORPUSCULAR HGB CONC 35.5 g/dl (32-36); MEAN PLATELET VOLUME 9.8 fL (7.4-10.4); MONO % 6.7 %; MONO ABS # 0.61 K/uL (0.11-0.59); NEUT ABS # 4.48 K/uL (1.4-6.5); PLATELET COUNT 321 K/uL (130-400); RED CELL DISTRIBUTION WIDTH CV 13.8 % (11.5-14.5); RED CELL DISTRIBUTION WIDTH SD 45.2 fL (36.4-46.3); WHITE BLOOD COUNT 9.15 K/uL (4.8-10.8)
[2018-03-03 10:05] LABS: ALBUMIN 3.4 gm/dl (3.4-5.0); ALT/SGPT 16 U/L (12-78); AST/SGOT 10 U/L (15-37); BLOOD UREA NITROGEN 10 mg/dl (7-18); CALCIUM 8.9 mg/dl (8.5-10.1); CARBON DIOXIDE 24 mmol/L (21-32); CREATININE 0.82 mg/dl (0.60-1.20); GLUCOSE 103 mg/dl (70-99); LIPASE 144 U/L (73-393); POTASSIUM 3.5 mmol/L (3.5-5.1); SODIUM 134 mmol/L (136-145)
[2018-03-03 10:08] LABS: ALKALINE PHOSPHATASE 94 U/L (45-117)
--- NOTE | 2018-03-03 10:19 | DIAGNOSTIC IMAGING REPORT ---
THORACIC SPINE 3 VIEWS CLINICAL HISTORY: Thoracic back pain. FINDINGS: AP, lateral, and swimmer's views of the thoracic spine are correlated with lateral chest x-ray dated 09/17/2014. The skeletal structures are well mineralized. There is no radiographic evidence of fracture or malalignment involving the thoracic spine. Vertebral body height and alignment are maintained. Fusion hardware is noted in the lower cervical region. The transverse processes and pedicles are grossly intact as seen on the frontal view. Mild multilevel degenerative disc space narrowing is noted. Foci of degenerative endplate sclerosis are seen in the mid to lower thoracic region. The lung parenchyma is clear as visualized. IMPRESSION: No acute bony abnormality is identified involving the thoracic spine. Electronically signed by: Naun Luis M.D. 03/03/2018 10:17 AM Dictated Date/Time: 03/03/2018 10:16 AM
--- NOTE | 2018-03-03 10:22 | DIAGNOSTIC IMAGING REPORT ---
LUMBAR SPINE 2 OR 3 VIEWS HISTORY: 42 years-old Female lower back pain acute low back pain with history of multiple back surgeries COMPARISON: Thoracic spine radiographs of same day, lumbar spine MR 06/23/2016 TECHNIQUE: 3 views of the lumbar spine FINDINGS: 5 lumbar type nonrib-bearing vertebral segments are present. No acute fracture or subluxation is identified. Postoperative changes from posterior decompression with interbody phoenix and screw fusion and discectomy at L4-L5. Discectomy changes are also noted at L5-S1. Moderate intervertebral disc space narrowing at a L1-L2. Mild multilevel spondylitic spurring. IMPRESSION: No acute fracture or subluxation. The above report was generated using voice recognition software. It may contain grammatical, syntax or spelling errors. Electronically signed by: Jamaal You M.D. 03/03/2018 10:21 AM Dictated Date/Time: 03/03/2018 10:18 AM
[2018-03-03] MEDS ORDERED: LINA1CAP2 PO (10:34)
[2018-03-03] MEDS ORDERED: INDSR/120 PO (10:34)
[2018-03-03] MEDS ORDERED: PRAZ2CAP3 PO (10:34)
[2018-03-03] MEDS ORDERED: HYDR25TA5 PO (10:34)
[2018-03-03] MEDS ORDERED: PARO30TA PO (10:34)
[2018-03-03] MEDS ORDERED: TOPI100T20 PO (10:34)
[2018-03-03] MEDS ORDERED: RIVA1TAB4 PO (10:34)
[2018-03-03] MEDS ORDERED: SUMA50TA15 PO (10:34)
[2018-03-03] MEDS ORDERED: PRAZ1CAP10 PO (10:34)
[2018-03-03] MEDS ORDERED: GABA-113 PO (10:34)
[2018-03-03] MEDS ORDERED: MRPSR/15 PO (10:35)
[2018-03-03] MEDS ORDERED: LSN20 PO (10:35)
[2018-03-03] MEDS ORDERED: RANI150T85 PO (10:35)
[2018-03-03] MEDS ORDERED: METH10TA4 PO (10:35)
[2018-03-03] MEDS ORDERED: RTL20 PO (10:35)
[2018-03-03] MEDS ORDERED: OXYSR/10 PO (10:35)
[2018-03-03] MEDS ORDERED: [UNRECOGNIZED DRUG - CODE] PO (10:35)
[2018-03-03] MEDS ORDERED: DEXL60CA4 PO (10:35)
[2018-03-03 10:54] LABS: INR 1.1 (0.9-1.1); PTT PATIENT 31.3 SECONDS (21.0-31.0)
[2018-03-03] MEDS ORDERED: METHYLPREDNISOLONE 125 MG VIAL IV STA (11:33)
[2018-03-03 11:36] VITALS: BP 104/63; PULSE 70; O2SAT 97
[2018-03-03] MEDS ORDERED: PRED50TA PO (11:36)
== END 2018-03-03 11:45 | disposition home or self-care (01) ==
LOC: C.EDB 08:38
DX: S39.012A Strain of muscle, fascia and tendon of lower back, initial encounter (principal); M54.17 Radiculopathy, lumbosacral region; X50.9XXA Other and unspecified overexertion or strenuous movements or postures, initial encounter; Z79.899 Other long term (current) drug therapy; F17.210 Nicotine dependence, cigarettes, uncomplicated

== ENCOUNTER 2018-12-21 04:57 | Observation (INO) ==
--- NOTE | 2018-11-30 14:45 | Anesthesiology Consultation ---
Date of Service November 30, 2018 Assessment & Plan (1) Encounter for pre-operative examination: Plan: - Possible difficult intubation due to decreased cervical extension.* - Check test AM DOS - Xarelto instructions per surgeon/prescriber. Teaching & Discussion Pre-Anesthesia Teaching/Discussion Notes: Instructed NPO after midnight before surgery,except medications with 15 cc of water. Medication instructions provided according to the PAT guidelines. History Surgery Operation Date: 12/21/18 07:45 Proposed Procedures p C4-C5 Anterior Cervical Discectomy and Fusion, C5-C6 Possible Removal of Plate - Jong Boucher DO Height/Weight Height: 5 ft 11.5 in Weight: 109 kg Allergies Allergy/AdvReac Type Severity Reaction Status Date / Time No Known Drug Allergies Allergy Unknown Verified 11/30/18 09:07 milk AdvReac Unknown SINUS & Verified 11/30/18 09:07 EAR INFECTIONS Medications Home Medications Medication Instructions Recorded Confirmed Last Taken Albuterol Nebulizer 1 dose INHALATION UD PRN 11/30/18 11/30/18 Unknown albuterol sulfate 1 - 2 puff INHALATION UD PRN 11/30/18 11/30/18 Unknown dexlansoprazole [Dexilant] 60 mg PO QAM 11/30/18 11/30/18 Unknown diazepam [Valium] 5 mg PO UD PRN 11/30/18 11/30/18 Unknown gabapentin 2 cap PO BID 11/30/18 11/30/18 Unknown hydrochlorothiazide 25 mg PO QAM 11/30/18 11/30/18 Unknown linaclotide [Linzess] 290 mcg PO QAM 11/30/18 11/30/18 Unknown lisinopril 20 mg PO QAM 11/30/18 11/30/18 Unknown oxycodone 10 mg PO UD PRN 11/30/18 11/30/18 Unknown paroxetine HCl 40 mg PO QAM 11/30/18 11/30/18 Unknown propranolol 120 mg PO HS 11/30/18 11/30/18 Unknown ranitidine HCl 150 mg PO BID 11/30/18 11/30/18 Unknown rivaroxaban [Xarelto] 20 mg PO PM 11/30/18 11/30/18 Unknown Past Medical History Medical History Acid reflux CONTROLLED Anemia CHRONIC; HGB IN THE 11-13 RANGE PER CHART REVIEW Anxiety Asthma STABLE Hiatal hernia History of DVT (deep vein thrombosis) LLE DVT ( MONTHS AGO) S/P TRAUMA- ON XARELTO History of migraine Hypertension Sleep apnea CPAP Past Family History Family History Mother Family history of colon cancer Grandmother (Paternal) Family history of colon cancer Grandmother (Maternal) Family history of brain cancer Uncle Family history of brain cancer Aunt Family history of breast cancer Grandfather (Maternal) Family history of lung cancer Past Surgical History Surgical History History of section X2 History of colonoscopy History of cone biopsy of cervix History of ear surgery RIGHT EAR DRUM EAR GRAFT History of endoscopy History of lumbar fusion X2; REMOVAL HARDWARE/L4-L5 DECOMPRESSION FUSION= 11/20/16= GRADE VIEW 1, MAC 3 , ETT 7.0 AT [facility] Past Anesthesia History No Family Hx of Anesthesia Complications and Other Per patient, single episode of post-op hypotension s/p lumbar surgery 11/20/16 at [facility] (no mention of BP issues per anesthesia records or anesthesia progress notes but anesthesia progress note does note post-op BP 80-90's/50's. BP improved at 120/70 prior to discharge per chart review. History of PONV No Motion Sickness Screening History of Motion Sickness: No STOP BANG Total 4 Social History Smoking Status: Former smoker tobacco type: cigarettes Smoking cigarettes per day: QUIT FEW MONTHS AGO; 1 PPD X 30+ YEARS Do You Dip or Chew Tobacco: No Hx Alcohol Use: No Hx Substance Use: No Exercise / Class Metabolic Activity II 4-5 Yardwork/Stairs/Walk up hill Review of Systems Patient denies chest pain, shortness of breath, dyspnea on exertion, cough, wheezing, palpitations. Physical Exam Significantly decreased cervical extension Full TMJ range of motion. TMD 3.5 finger breaths Mallampati Score 1 Dentition: missing molars/sides; multiple chipped teeth, poor dentition Lungs: clear throughout to auscultation Cardiac: regular rate and rhythm, no murmurs noted Spine: normal Carotid arteries: negative bruit Extremities: no edema Testing Electrocardiogram Date: 11/30/18 Findings: + NSR @ (65) Chest X-Ray Date: 11/30/18 Findings: + NAD Laboratory Results 11/30/18 14:58 11/30/18 14:58 Blood Type O Positive 11/30/18 14:58 Antibody Screen NEGATIVE 11/30/18 14:58 PT 10.4 Seconds (9.0-12.0) 11/30/18 14:58 INR 1.0 (0.9-1.1) 11/30/18 14:58 APTT 24.2 Seconds (21.0-31.0) 11/30/18 14:58 Urine Color Yellow 11/30/18 Unknown Urine Appearance Clear (Clear) 11/30/18 Unknown Urine pH 5.5 (4.5-7.5) 11/30/18 Unknown Ur Specific [place] 1.013 (1.000-1.030) 11/30/18 Unknown Urine Protein Negative (Negative) 11/30/18 Unknown Urine Glucose (UA) Negative (Negative) 11/30/18 Unknown Urine Ketones Negative (Negative) 11/30/18 Unknown Urine Nitrite Negative (Negative) 11/30/18 Unknown Ur Leukocyte Esterase Negative (Negative) 11/30/18 Unknown
--- NOTE | 2018-11-30 14:50 | PAT Medication Instructions ---
Medication Instructions Date of Service November 30, 2018 Home Medications Albuterol Nebulizer 1 dose INHALATION UD PRN albuterol sulfate 1 - 2 puff INHALATION UD PRN dexlansoprazole [Dexilant] 60 mg PO QAM diazepam [Valium] 5 mg PO UD PRN gabapentin 2 cap PO BID hydrochlorothiazide 25 mg PO QAM linaclotide [Linzess] 290 mcg PO QAM lisinopril 20 mg PO QAM oxycodone 10 mg PO UD PRN paroxetine HCl 40 mg PO QAM propranolol 120 mg PO HS ranitidine HCl 150 mg PO BID rivaroxaban [Xarelto] 20 mg PO PM ASK your prescriber and surgeon rivaroxaban [Xarelto] 20 mg PO PM DO NOT take the morning of surgery hydrochlorothiazide 25 mg PO QAM linaclotide [Linzess] 290 mcg PO QAM lisinopril 20 mg PO QAM Take morning of surgery With a small sip of water, OTHERWISE NOTHING TO EAT OR DRINK AFTER MIDNIGHT: Albuterol Nebulizer 1 dose INHALATION UD PRN (if needed) albuterol sulfate 1 - 2 puff INHALATION UD PRN (use if needed; please bring with you to hospital day of surgery if possible) dexlansoprazole [Dexilant] 60 mg PO QAM diazepam [Valium] 5 mg PO UD PRN (if needed) gabapentin 2 cap PO BID oxycodone 10 mg PO UD PRN (okay to take up to 4 hours prior to surgery if needed ) paroxetine HCl 40 mg PO QAM ranitidine HCl 150 mg PO BID Take evening before surgery Albuterol Nebulizer 1 dose INHALATION UD PRN (if needed) albuterol sulfate 1 - 2 puff INHALATION UD PRN (if needed) diazepam [Valium] 5 mg PO UD PRN (if needed) gabapentin 2 cap PO BID oxycodone 10 mg PO UD PRN (if needed) propranolol 120 mg PO HS ranitidine HCl 150 mg PO BID rivaroxaban [Xarelto] 20 mg PO PM Other Notes If you have any questions please call us at [phone] or [phone] or [phone] or [phone]
[2018-11-30 15:45] LABS: Basophils # (auto) 0.02 K/uL (0-0.2); Basophils % (auto) 0.2 %; Eosinophils # (auto) 0.19 K/uL (0-0.5); Eosinophils % (auto) 2.3 %; Immature Granulocytes # (auto) 0.02 K/uL (0.00-0.02); Immature Granulocytes % (auto) 0.2 %; Lymphocytes # (auto) 3.12 K/uL (1.2-3.4); Lymphocytes % (auto) 38.1 %; Mean Corpuscular Hgb Conc 32.4 g/dL (32-36); Mean Corpuscular Volume 90.9 fL (80-100); Mean Platelet Volume 10.3 fL (7.4-10.4); Monocytes # (auto) 0.56 K/uL (0.11-0.59); Monocytes % (auto) 6.8 %; Neutrophils # (auto) 4.28 K/uL (1.4-6.5); Neutrophils % (auto) 52.4 %; Platelet Count 414 K/uL (130-400); RDW Coefficient of Variation 14.9 % (11.5-14.5); RDW Standard Deviation 49.5 fL (36.4-46.3); Red Blood Count 3.74 M/uL (4.2-5.4); White Blood Count 8.19 K/uL (4.8-10.8)
[2018-11-30 15:53] LABS: Appearance Urine Clear (Clear); Bilirubin Urine Negative (Negative); Color Urine Yellow; Glucose Urine UA Negative (Negative); Ketones Urine Negative (Negative); Leukocyte Esterase Urine Negative (Negative); Nitrite Urine Negative (Negative); Protein Urine Negative (Negative); Specific Gravity Urine 1.013 (1.000-1.030); Urobilinogen Urine Negative (Negative); pH Urine 5.5 (4.5-7.5)
[2018-11-30 15:56] LABS: BUN Creatinine Ratio 11.6 (10-20); Calcium 9.3 mg/dl (8.5-10.1); Creatinine Clr Calc Pharmacy 138.5 ml/min; Est GFR (African American) 120.1; Est GFR (Non-African American) 103.6; Partial Thromboplastin Ratio 0.9; Partial Thromboplastin Time 24.2 Seconds (21.0-31.0); Potassium 4.2 mmol/L (3.5-5.1); Prothrombin Time 10.4 Seconds (9.0-12.0)
--- NOTE | 2018-11-30 16:03 | XRay Report ---
XR chest Pre-admission PA/Lat HISTORY: Preop. COMPARISON: Chest 09/17/2014. FINDINGS: The lungs are clear. Cardiac silhouette is normal in size. No pleural effusions. No pneumot horax. IMPRESSION: No acute process. Electronically signed by: Alen Valentino M.D. 11/30/2018 4:02 PM
[2018-12-21] MEDS ORDERED: CEFAZOLIN 3000MG 65 ML IV SCH (06:00)
[2018-12-21] MEDS ORDERED: ACETAMINOPHEN 500 MG TAB PO SCH (06:00)
[2018-12-21] MEDS ORDERED: LR 15ML/HR IV SCH (06:00)
[2018-12-21] MEDS ORDERED: GABAPENTIN 300 MG x 3 PO SCH (06:00)
[2018-12-21] MEDS ORDERED: CeleBREX 200 MG CAP PO SCH (06:00)
[2018-12-21] MEDS ORDERED: BACITRACIN INJ 50,000 UNIT VIAL ONE (06:51)
[2018-12-21] MEDS ORDERED: PROPOFOL IV EMULSION 10 MG/ML 20 ML VIAL IV ONE (06:52)
[2018-12-21] MEDS ORDERED: ONDANSETRON INJ 2 MG/ML 2 ML VIAL ONE (06:52)
[2018-12-21] MEDS ORDERED: fentaNYL citrate 100 MCG/2 ML VIAL ONE ×2 (06:52→08:01)
[2018-12-21] MEDS ORDERED: MIDAZOLAM HCL 1 MG/ML 2ML VIAL ONE (06:52)
[2018-12-21] MEDS ORDERED: LIDOCAINE HCL 2% 2 ML VIAL/AMP(20MG/ML) INFIL ONE (06:52)
[2018-12-21] MEDS ORDERED: ROCURONIUM BROMIDE 10 MG/ML 5 ML VIAL ONE (06:52)
--- NOTE | 2018-12-21 07:31 | History & Physical Bridge Note ---
Date of Service December 21, 2018 History & Physical Bridge Note I have examined the patient, reviewed the History & Physical and in the interval since the performance of the History & Physical I have noted the following changes of clinical significance: no changes noted
--- NOTE | 2018-12-21 07:32 | History & Physical Report ---
Date of Service December 21, 2018 Assessment & Plan (1) Cervical stenosis of spinal canal: Anterior cervical discectomy and fusion C4-5 possible removal of plate at C5-6 Present on Admission?: Yes History of Present Illness Chief Complaint: Neck and arm pain Primary Care Provider: Erik Murdcok DO The 43-year-old female well-known to me that presents with chronic persistent neck and arm pain. After failing extensive course of nonoperative care is here for surgical intervention. Allergies Allergy/AdvReac Type Severity Reaction Status Date / Time No Known Drug Allergies Allergy Unknown Verified 12/21/18 05:47 milk AdvReac Unknown SINUS & Verified 12/21/18 05:47 EAR INFECTIONS Home Medications Home Medications Medication Instructions Recorded Confirmed Type Albuterol Nebulizer 1 dose INHALATION UD PRN 11/30/18 11/30/18 History albuterol sulfate 1 - 2 puff INHALATION UD PRN 11/30/18 12/21/18 History dexlansoprazole [Dexilant] 60 mg PO QAM 11/30/18 12/21/18 History diazepam [Valium] 5 mg PO UD PRN 11/30/18 12/21/18 History gabapentin 2 cap PO BID 11/30/18 12/21/18 History hydrochlorothiazide 25 mg PO QAM 11/30/18 12/21/18 History linaclotide [Linzess] 290 mcg PO QAM 11/30/18 12/21/18 History lisinopril 20 mg PO QAM 11/30/18 12/21/18 History oxycodone 10 mg PO UD PRN 11/30/18 12/21/18 History paroxetine HCl 40 mg PO QAM 11/30/18 12/21/18 History propranolol 120 mg PO HS 11/30/18 12/21/18 History ranitidine HCl 150 mg PO BID 11/30/18 12/21/18 History rivaroxaban [Xarelto] 20 mg PO PM 11/30/18 12/21/18 History Past Med/Surg History Medical History Acid reflux CONTROLLED Anemia CHRONIC; HGB IN THE 11-13 RANGE PER CHART REVIEW Anxiety Asthma STABLE Hiatal hernia History of DVT (deep vein thrombosis) LLE DVT ( MONTHS AGO) S/P TRAUMA- ON XARELTO History of migraine Hypertension Sleep apnea CPAP Surgical History History of bilateral tubal ligation (Acute) History of section X2 History of colonoscopy History of cone biopsy of cervix History of ear surgery RIGHT EAR DRUM EAR GRAFT History of endoscopy History of lumbar fusion X2; REMOVAL HARDWARE/L4-L5 DECOMPRESSION FUSION= 11/20/16= GRADE VIEW 1, MAC 3 , ETT 7.0 AT [facility] Family History Mother Family history of colon cancer Grandmother (Paternal) Family history of colon cancer Grandmother (Maternal) Family history of brain cancer Uncle Family history of brain cancer Aunt Family history of breast cancer Grandfather (Maternal) Family history of lung cancer Social History Current Living Situation: Significant Other and Other Current Living Situation Comment: DAUGHTER AND FIANCE Other Information That Helps Us Care for You: No Feels Safe at Home: Yes Smoking Status: Former smoker Tobacco Type: cigarettes Cigarettes per Day: QUIT FEW MONTHS AGO; 1 PPD X 30+ YEARS Do You Dip or Chew Tobacco: No Hx Alcohol Use: No Hx Substance Use: No Beliefs That Will Affect Care: None Preferred Language: [place] Communication Ability: Effective Supervisor [employer] Required: No Physical Exam 2 Vital Signs (Past 24 Hours): Last Vital Signs Temp 36.9 C 12/21/18 05:56 Pulse 77 12/21/18 05:56 Resp 18 12/21/18 05:56 BP 143/74 H 12/21/18 05:56 Pulse Ox 97 12/21/18 05:56 Results & Data Medications Administered Acetaminophen (Tylenol) 1,000 mg PO PREOP BETO Stop: 12/21/18 18:00 Last Admin: 12/21/18 06:20 Dose: 1,000 mg Celecoxib (Celebrex) 200 mg PO PREOP BETO Stop: 12/21/18 18:00 Last Admin: 12/21/18 06:21 Dose: 200 mg Gabapentin (Neurontin) 900 mg PO PREOP BETO Stop: 12/21/18 18:00 Last Admin: 12/21/18 06:21 Dose: 900 mg Lactated Ringer's (Lr) 1,000 mls @ 15 mls/hr IV .Q24H BETO Stop: 12/22/18 05:59 Last Admin: 12/21/18 06:32 Dose: 15 mls/hr
[2018-12-21] MEDS ORDERED: ePHEDrine sulfate 50 MG/ML AMP IV PRN (07:45)
[2018-12-21] MEDS ORDERED: ATROPINE SULFATE 0.1 MG/ML 10ML SYR IV PRN (07:45)
[2018-12-21] MEDS ORDERED: FLOSEAL HEMOSTATIC MATRIX 10ML TOP ONE (09:10)
--- NOTE | 2018-12-21 09:17 | Operative Report ---
Post Operative Report Pre & Post Diagnosis Operation Date: 12/21/18 07:45 Pre-Op Diagnosis: Spinal Stenosis, Cervical Region Post-Op Diagnosis: Spinal Stenosis, Cervical Region Procedure Operation Date: 12/21/18 07:45 Actual Procedures #1 removal of anterior cervical plate C5-6. #2 exploration of fusion C5-6. #3 anterior cervical discectomy with bilateral foraminotomies C4-5. #4 anterior cervical arthrodesis C4-5 per #5 placement of 8 mm cortical allograft filled with DBM C4-5 per #6 application posey plate and screws across C4-5. Surgeon Jong Boucher, Drop Hammer Mechanic Cristina Noyola Estimated Blood Loss 25 Findings Consistent with Post-Op Diagnosis Specimens None Description of Procedure Patient was met with preoperatively case discussed all questions addressed. After informed consent obtained patient was taken to the operative suite underwent intubation and placed in supine position Kaushal table and Bello headholder. All bony prominences well-padded eyes inspected to ensure no external pressure placed upon but this point the anterior cervical spine was prepped and draped in a normal sterile fashion. The assistance of fluoroscopy identified the C5 vertebral body and transverse incision was placed along the right anterior aspect of the cervical spine overlying the region. Sharp dissection with the assistance of bipolar electrocautery was performed down to and exposing the anterior cervical spine at C4-5 and the plate at 5 6. Then proceed remove the plate at C5-6. Removed without difficulty. Of fluoroscopy explore the fusion mass was grossly intact. Then performed a complete discectomy of C4-5 out to the uncovertebral joints bilaterally. [place] distracting pins were utilized to assist in visualization. Removed all posterior annular fibers longitudinal ligament bilateral foraminotomies performed. Endplates were then burred to subcortical bleeding bone and an 8 mm cortical allograft filled with DBM tamped in position. Distraction apparatus was removed and a posey plate and screws applied with the assistance of fluoroscopy. Incision was then copious irrigated explored to ensure no damage to surrounding structures remaining inserted. Incision then closed with 2 Vicryl in a fashion of 4 Monocryl for Fransen closure Steri-Strip sterile dressing placed. Patient will continue to PACU stable disc. Please note Cristina Noyola present at the entire procedure involved in patient positioning complex portions of the surgeon Fransen closure. I attest to the content of the Intraoperative Record and any orders documented therein. Any exceptions are noted below.
[2018-12-21] MEDS: HYDROmorphone INJ 2 MG/ML SYR/VIAL IV PRN ×4 (09:39→10:16)
[2018-12-21] MEDS ORDERED: HYDROmorphone INJ 1 MG/ML SYRINGE ONE (10:03)
--- NOTE | 2018-12-21 10:10 | Fluoroscopy Report ---
Cervical SPINE, INTRAOPERATIVE FLUOROSCOPY HISTORY: C4-C5 ACDF. FLUOROSCOPY TIME: 8 seconds. FINDINGS: Intraoperative fluoroscopy was provided for the cervical spine. 2 fluoroscopic spot images were obtained. Anterior cervical discectomy and fusion at C4-C5 with interbody bone graft. The hardwa re appears intact. IMPRESSION: Fluoroscopy provided for a C4-C5 ACDF. Electronically signed by: Alen Valentino M.D. 12/21/2018 10:08 AM
[2018-12-21] MEDS ORDERED: DEXAMETHASONE SOD PHOSPHATE 8 MG in SYRINGE 0 ML IV PRN (10:55)
[2018-12-21] MEDS ORDERED: LORazepam 0.5 MG TAB PO PRN (10:55)
[2018-12-21] MEDS ORDERED: LORazepam 0.5 MG/1 ML VIAL IV PRN (10:55)
[2018-12-21] MEDS ORDERED: NALOXONE HCL 0.4 MG/1 ML VIAL/CARP IV PRN (10:55)
[2018-12-21] MEDS ORDERED: diazePAM 5 MG TABLET PO PRN (10:55)
[2018-12-21] MEDS ORDERED: ALBUTEROL 0.083% NEBU SOLN 3 ML VIAL INH PRN ×2 (10:55→14:11)
[2018-12-21] MEDS ORDERED: ACETAMINOPHEN 1,000 MG/100 ML VIAL IV PRN (10:55)
[2018-12-21] MEDS ORDERED: DO NOT ADMINISTER PNEUMOCOCCAL VACCINE PRN (10:55)
[2018-12-21] MEDS ORDERED: MAGNESIUM HYDROXIDE SUSP 30 ML UDC PO PRN (10:55)
[2018-12-21] MEDS ORDERED: ONDANSETRON INJ 2 MG/ML 2 ML VIAL IV PRN (10:55)
[2018-12-21] MEDS ORDERED: OXYCODONE HCL IR 5 MG TAB (IMMEDIATE RELEASE) PO PRN (10:55)
[2018-12-21] MEDS ORDERED: DO NOT ADMINISTER FLU VACCINE PRN (10:55)
[2018-12-21] MEDS ORDERED: DiphenhydrAMINE HCL 50 MG/ML VIAL IV PRN (10:55)
[2018-12-21] MEDS ORDERED: RACEPINEPHRINE 2.25% NEBU SOLN 0.5 ML VIAL INH PRN (10:55)
--- NOTE | 2018-12-21 10:59 | Anesthesiology Progress Note ---
Date of Service December 21, 2018 Anesthesia Post Procedure Vital Signs Vital Signs: Temp Pulse Pulse Resp BP Pulse Ox 12/21/18 10:37 37.0 C 65 15 130/96 96 12/21/18 10:20 37.0 C 70 15 115/82 97 12/21/18 10:10 61 15 123/72 94 12/21/18 10:00 75 15 135/101 H 92 12/21/18 09:50 85 22 142/92 H 100 12/21/18 09:40 78 18 145/91 H 100 12/21/18 09:30 70 18 107/77 100 12/21/18 09:23 36.6 C 72 18 123/78 100 12/21/18 05:56 36.9 C 77 18 143/74 H 97 Pain Intensity Back: Pain Intensity: 4 Anterior Neck: Pain Intensity: 4 Notes Mental Status: alert / awake / arousable Patient Amnestic to Procedure: Yes Nausea / Vomiting: adequately controlled Pain: adequately controlled Airway Patency, RR, SpO2: stable & adequate BP & HR: stable & adequate Hydration State: stable & adequate Anesthetic Complications: no major complications apparent and Pt Satisfied with anesthetic care
[2018-12-21] MEDS ORDERED: SCOPOLAMINE 1.5 MG TDSY TD SCH (12:00)
[2018-12-21 12:54] LABS: Alanine Aminotransferase 16 U/L (12-78); Albumin Level 3.2 gm/dl (3.4-5.0); Alkaline Phosphatase 106 U/L (45-117); Aspartate Aminotransferase 11 U/L (15-37); Bilirubin Direct < 0.1 mg/dl (0-0.2); Bilirubin,Total 0.3 mg/dl (0.2-1); Total Protein 7.8 gm/dl (6.4-8.2)
[2018-12-21] MEDS: LACTATED RINGER'S 1,000 ML IV SCH (13:15)
[2018-12-21] MEDS: HYDROmorphone INJ 0.5 MG/0.5 ML SYR IV PRN ×2 (16:05→20:24)
[2018-12-21] MEDS: CEFAZOLIN 2000MG 2,000 MG/15 ML SYR IV SCH ×2 (16:39→23:28)
[2018-12-21] MEDS: [UNRECOGNIZED DRUG - OTHER] SCH ×2 (16:40→23:42)
[2018-12-21] MEDS: CHECK SCOPOLAMINE PATCH PLACEMENT SCH ×2 (16:40→23:40)
[2018-12-21] MEDS: DOCUSATE SODIUM 100 MG CAP PO SCH (20:23)
[2018-12-21] MEDS: GABAPENTIN 300 MG CAP PO SCH (20:23)
[2018-12-21] MEDS ORDERED: PROPRANOLOL HCL 60 MG LA CAP PO SCH (21:00)
[2018-12-21] MEDS ORDERED: RIVAROXABAN 20 MG TAB PO SCH (21:00)
[2018-12-21] MEDS: OXYCODONE HCL IR 5 MG TAB (IMMEDIATE RELEASE) PO PRN (23:27)
[2018-12-22] MEDS: LACTATED RINGER'S 1,000 ML IV SCH (00:17)
[2018-12-22] MEDS: HYDROmorphone INJ 0.5 MG/0.5 ML SYR IV PRN ×2 (01:43→07:01)
[2018-12-22] MEDS: OXYCODONE HCL IR 5 MG TAB (IMMEDIATE RELEASE) PO PRN ×2 (04:44→10:47)
[2018-12-22] MEDS: CHECK SCOPOLAMINE PATCH PLACEMENT SCH (07:32)
[2018-12-22] MEDS: CEFAZOLIN 2000MG 2,000 MG/15 ML SYR IV SCH (07:32)
[2018-12-22] MEDS: [UNRECOGNIZED DRUG - OTHER] SCH (07:32)
[2018-12-22] MEDS: GABAPENTIN 300 MG CAP PO SCH (08:32)
[2018-12-22] MEDS: DOCUSATE SODIUM 100 MG CAP PO SCH (08:33)
--- NOTE | 2018-12-22 08:37 | Discharge Summary ---
Date of Service December 22, 2018 Admission HPI Per Admitting Provider The 43-year-old female well-known to me that presents with chronic persistent neck and arm pain. After failing extensive course of nonoperative care is here for surgical intervention. Principal Diagnosis Cervical spinal stenosis Discharge Data Allergies Allergy/AdvReac Type Severity Reaction Status Date / Time No Known Drug Allergies Allergy Unknown Verified 12/21/18 05:47 milk AdvReac Unknown SINUS & Verified 12/21/18 05:47 EAR INFECTIONS Procedures Performed Operation Date: 12/21/18 07:45 Actual Procedures p C4-C5 Anterior Cervical Discectomy and Fusion(Not Applicable) - Jong Boucher DO s C5-C6 Removal of Plate(Not Applicable) - Jong Boucher DO Ordered Studies 12/21/18 07:45 FL cervical 2-3V Routine FL fluoroscopy <1hr Routine Hospital Course (1) Cervical stenosis of spinal canal: Patient underwent anterior cervical discectomy and fusion tolerated as well as taken to the orthopedic floor postoperatively. Postop day 1 symptoms markedly improved. No hoarseness. Swallowing well. Subsequently discharged home. Discharge orders and instructions found in the chart for further review. Total Time Total Time Spent Total Time Spent (In Minutes): Not applicable Discharge Plan Discharge Items Patient Disposition: Home - Self-Care Reason For Visit: Spinal Stenosis, Cervical Region Discharge Diagnosis: cervical stenosis Discharge Goals: Improve function Activity: Per 'Additional Instructions' section Non-emergency contact: Primary Care Provider Call non-emergency contact if: you have any medication questions Follow-up/Referrals: Erik Murdock DO [Primary Care Provider] - Diet: Regular Addtl Provider Instructions: ACTIVITY RECOMMENDATIONS: SELF CARE INSTRUCTIONS AFTER CERVICAL FUSIONS 1. No smoking. Smoking drastically decreases the chance of a solid fusion. 2. No bending, lifting more than 5 pounds, or twisting (roll like a log when turning in bed). 3. You may shower 3 days after surgery. Thoroughly dry wound. Do not soak in the tub. 4. Cervical collar: Must be worn at all times including sleeping. You may remove the brace only to bath, eat and if you are sitting in a recliner. 5. Please walk as much as you can for exercise. Gradually increase the distance that you walk as your endurance increases. SPECIAL CARE INSTRUCTIONS: VERY IMPORTANT TO READ AND REVIEW A. Do not take any anti-inflammatory medications (i.e. Indocin, Advil, Aspirin, Naprosyn, Aleve, Motrin, etc.) as these may inhibit the chance of a solid fusion. Tylenol is okay to take. B. Your surgical incision has been closed with a cosmetic suture under the skin that will dissolve in about 6 weeks. In 14 days, you can use a pair of clean scissors and cut the suture that is left outside of the skin at the ends of your incision. C. Complications are uncommon, but please contact us if you have any signs or symptoms of: 1. wound infection (fever higher than 102.5 degrees F, redness, separation of wound, drainage, or increasing pain from the incision) 2. blood clots in legs (pain, swelling, redness and warmth in legs) 3. urinary tract infection (fever higher than 102.5 degrees, burning upon urination or increased frequency of urination) 4. nerve problems (inability to walk on your toes or heels, numbness, loss of bowel or bladder control) 5. any other symptoms that concern you. D. Please call the office at if you have any concerns or questions about your operation or recovery. MANAGING PAIN AFTER SPINAL SURGERY 1. Narcotic medication is intended for short-term use and will be provided for surgical pain. Surgical pain usually lasts for a period of 4-6 weeks. Narcotic medication includes Percocet, Vicodin, Darvocet, Tylenol #3 or Lortab. 2. Longer-term pain is more appropriately treated with non-narcotic medication such as Tylenol ES. 3. Muscle spasm is not appropriately treated with narcotics. Muscle relaxers such as Soma, Flexeril or Skelaxin can be used along with Tylenol ES. 4. Remember that we all live with some "aches and pains". This is not unusual or uncommon after an injury or as we get older. 5. We will provide appropriate medication within the normal guidelines of their prescribed use. We will also be very cautious and aware of potential abuse and extended duration of patients' medication needs. 6. Please allow 2-3 days to process refills. Prescriptions will not be mailed but must be picked up at the office. FOLLOW UP VISIT: Keep your scheduled follow-up appointment. Any questions, please call the office at . Prescriptions: New oxycodone 5 mg Tablet 5 mg PO Q4H PRN (Reason: Pain, Severe) Qty: 20 RF: 0 Continue lisinopril 20 mg Tablet 20 mg PO QAM RF: 0 gabapentin 300 mg Capsule 2 cap PO BID RF: 0 ranitidine HCl 150 mg Capsule 150 mg PO BID RF: 0 hydrochlorothiazide 25 mg Tablet 25 mg PO QAM RF: 0 propranolol 120 mg Capsule,Extended Release 24 Hr 120 mg PO HS RF: 0 paroxetine HCl 40 mg Tablet 40 mg PO QAM RF: 0 dexlansoprazole [Dexilant] 60 mg Capsule,Biphase Delayed Releas 60 mg PO QAM RF: 0 rivaroxaban [Xarelto] 20 mg Tablet 20 mg PO PM RF: 0 linaclotide [Linzess] 290 mcg Capsule 290 mcg PO QAM RF: 0 Albuterol Nebulizer 1 dose Inhalation UD PRN (Reason: ASTHMA) RF: 0 albuterol sulfate 90 mcg/actuation Hfa Aerosol Inhaler 1 - 2 puff INHALATION UD PRN (Reason: ASTHMA) RF: 0 oxycodone 10 mg Tablet 10 mg PO UD PRN (Reason: Pain) RF: 0 diazepam [Valium] 5 mg Tablet 5 mg PO UD PRN (Reason: Anxiety) RF: 0 Stand-Alone Forms: [facility] Discharge Orders: Discharge Order (Routine); Ordered 12/22/18 Ordered By: Jong Boucher Admission Data Admit Date/Time: 12/21/18 09:21 Attending Provider: Jong Boucher Admit Provider: Jong Boucher Primary Care Provider: Erik Murdock Service: Surgical Services
[2018-12-22] MEDS ORDERED: PANTOprazole 40 MG TAB PO SCH (09:00)
[2018-12-22] MEDS ORDERED: PARoxetine HCl 20 MG TAB PO SCH (09:00)
[2018-12-22] MEDS ORDERED: hydroCHLOROthiazide 25 MG TAB PO SCH (09:00)
[2018-12-22] MEDS ORDERED: LISINOPRIL 20 MG TAB PO SCH (09:00)
--- NOTE | 2018-12-22 09:18 | Anesthesiology Progress Note ---
Date of Service December 22, 2018 Anesthesia Post Procedure Vital Signs Vital Signs: Temp Pulse Pulse Pulse Resp BP Pulse Ox 12/22/18 08:00 36.9 C 68 12 123/75 97 12/22/18 07:29 66 18 97 12/22/18 05:50 36.8 C 62 18 111/64 98 12/22/18 03:50 36.8 C 61 20 101/61 99 12/22/18 03:30 66 16 99 12/22/18 01:50 37.1 C 76 18 122/77 99 12/21/18 23:50 36.5 C 70 20 112/76 100 12/21/18 23:01 93 H 18 99 12/21/18 19:47 76 18 97 12/21/18 15:49 36.8 C 101 H 22 108/74 98 12/21/18 15:07 82 18 98 12/21/18 13:56 87 16 118/79 97 12/21/18 12:43 80 12 103/71 99 12/21/18 11:28 86 16 116/66 96 12/21/18 11:21 86 16 96 12/21/18 10:55 36.8 C 76 12 122/88 95 12/21/18 10:37 37.0 C 65 15 130/96 96 12/21/18 10:20 37.0 C 70 15 115/82 97 12/21/18 10:10 61 15 123/72 94 12/21/18 10:00 75 15 135/101 H 92 12/21/18 09:50 85 22 142/92 H 100 12/21/18 09:40 78 18 145/91 H 100 12/21/18 09:30 70 18 107/77 100 12/21/18 09:23 36.6 C 72 18 123/78 100 Pulse Ox 12/22/18 08:00 12/22/18 07:29 12/22/18 05:50 12/22/18 03:50 12/22/18 03:30 12/22/18 01:50 12/21/18 23:50 100 12/21/18 23:01 12/21/18 19:47 12/21/18 15:49 12/21/18 15:07 12/21/18 13:56 12/21/18 12:43 12/21/18 11:28 12/21/18 11:21 12/21/18 10:55 95 12/21/18 10:37 12/21/18 10:20 12/21/18 10:10 12/21/18 10:00 12/21/18 09:50 12/21/18 09:40 12/21/18 09:30 12/21/18 09:23 Pain Intensity Back: Pain Intensity: 4 Anterior Neck: Pain Intensity: 5 Notes Mental Status: alert / awake / arousable and participated in evaluation Patient Amnestic to Procedure: Yes Nausea / Vomiting: see Notes below Pain: adequately controlled Airway Patency, RR, SpO2: stable & adequate BP & HR: stable & adequate Hydration State: stable & adequate Anesthetic Complications: no major complications apparent and Pt Satisfied with anesthetic care
== END 2018-12-22 11:19 | disposition home or self-care (01) ==
LOC: ASU 04:57 → INTOOBSV 09:21 → 3E 09:21